=== PATIENT | male | born 1935 | race Caucasian/White ===

== ENCOUNTER 2019-08-29 10:48 | Inpatient (IN) ==
[2019-08-29] MEDS ORDERED: SODIUM CHLORIDE 0.9% 1000ML 1,000 ML IV SCH ×2 (11:45→18:29)
[2019-08-29] MEDS ORDERED: ALBUT/IPRATROP 3MG/0.5MG NEB 3 ML VIAL NEB STA (11:56)
--- NOTE | 2019-08-29 12:04 | XRay Report ---
XR chest 1V portable CLINICAL HISTORY: 84 years-old Male presenting with cough. TECHNIQUE: Portable upright AP view of the chest was obtained. COMPARISON: None. FINDINGS: Atherosclerosis of the aortic arch. Cardiac silhouette normal in size. Elevation of the right hemidia phragm. Reticular opacities suggested at the lung bases, greater on the right. No other focal opacity . Overall coarsened lung markings. No large effusion or pneumothorax. Degenerative changes of the tho racic spine. Upper abdomen normal. IMPRESSION: 1. Bibasilar opacities greater on the right, possibly scarring or atelectasis. This would be better evaluated with PA and lateral views. 2. Elevation of the right hemidiaphragm could suggest hemidiaphragm paralysis/phrenic nerve injury. This may be on a chronic basis. ACT 112: Negative or not required by law. Results electronically sent 08/29/2019 12:03 PM to: Crissy Ortega DO Electronically signed by: Long Pacheco M.D. 08/29/2019 12:03 PM
[2019-08-29 12:33] LABS: Basophils # (auto) 0.04 K/uL (0-0.2); Basophils % (auto) 0.4 %; Eosinophils # (auto) 0.01 K/uL (0-0.5); Eosinophils % (auto) 0.1 %; Hematocrit (blood only) 42.3 % (42-52); Hemoglobin 14.4 g/dL (14.0-18.0); Immature Granulocytes # (auto) 0.03 K/uL (0.00-0.02); Immature Granulocytes % (auto) 0.3 %; Lymphocytes # (auto) 0.95 K/uL (1.2-3.4); Lymphocytes % (auto) 8.6 %; Mean Corpuscular Hemoglobin 29.3 pg (25-34); Mean Corpuscular Volume 86.2 fL (80-100); Mean Platelet Volume 9.4 fL (7.4-10.4); Monocytes # (auto) 0.75 K/uL (0.11-0.59); Monocytes % (auto) 6.8 %; Neutrophils # (auto) 9.25 K/uL (1.4-6.5); Neutrophils % (auto) 83.8 %; Platelet Count 188 K/uL (130-400); RDW Coefficient of Variation 13.3 % (11.5-14.5); RDW Standard Deviation 41.9 fL (36.4-46.3); Red Blood Count 4.91 M/uL (4.7-6.1); White Blood Count 11.03 K/uL (4.8-10.8)
[2019-08-29 12:51] LABS: Alanine Aminotransferase 30 U/L (12-78); Albumin Level 3.6 gm/dl (3.4-5.0); Aspartate Aminotransferase 19 U/L (15-37); BUN Creatinine Ratio 15.4 (10-20); Blood Urea Nitrogen 27 mg/dl (7-18); Calcium 9.1 mg/dl (8.5-10.1); Carbon Dioxide 22 mmol/L (21-32); Chloride 106 mmol/L (98-107); Est GFR (African American) 40.8; Est GFR (Non-African American) 35.2; Glucose 229 mg/dl (70-99); Potassium 4.1 mmol/L (3.5-5.1); Sodium 137 mmol/L (136-145)
[2019-08-29 12:56] LABS: Albumin Globulin Ratio 0.9 (0.9-2); Alkaline Phosphatase 102 U/L (45-117); Bilirubin,Total 0.9 mg/dl (0.2-1); Globulin 4.1 gm/dl (2.5-4.0); NT Pro B Type Natriuretic Pept 487 pg/ml (0-1800); Total Protein 7.7 gm/dl (6.4-8.2); Troponin I < 0.015 ng/ml (0-0.045)
[2019-08-29 13:06] LABS: Influenza A virus by PCR Neg for Influ A (Neg); Influenza B virus by PCR Neg for Influ B (Neg)
--- NOTE | 2019-08-29 13:48 | CT Scan Report ---
CT ANGIOGRAPHY OF THE CHEST, PULMONARY EMBOLUS PROTOCOL CLINICAL HISTORY: Shortness of breath. Evaluate for pulmonary embolus. COMPARISON STUDY: Chest radiograph August 29, 2019. TECHNIQUE: Following IV administration of 120 mL of Optiray-320, helical axial images of the chest we re obtained utilizing the pulmonary embolus protocol. Maximal intensity projections and sagittal and coronal reformats were viewed on an independent 3D workstation. IV contrast was administered withou t complication. Automated exposure control was utilized for the study. A dose lowering technique wa s utilized adhering to the principles of ALARA. CT DOSE: 814.95 mGy.cm FINDINGS: Moderate elevation of the right hemidiaphragm is noted. No pulmonary emboli are identified . There is no thoracic aortic dissection. Moderate cardiomegaly is noted with extensive coronary brittani ry calcification. There is no pericardial effusion. No pneumothorax or pleural effusion is noted. Mil dly enlarged subcarinal lymph node measures 1.4 cm in short axis stent. Mildly enlarged right hilar n odes measure up to 1.4 cm in short axis diameter. Moderate irregular airspace opacities within the ri ght lung are noted. Left lung subpleural opacity reflects atelectasis. The central airways are patent . Bony thorax is unremarkable. No significant abnormality within visualized portions of the upper abd omen is noted. IMPRESSION: 1. No pulmonary emboli identified. 2. Multifocal alveolar opacities within the right lung which favor an infectious process such as bron chiolitis/developing bronchopneumonia. 3. Mild subcarinal and right hilar lymphadenopathy which is likely reactive. However, a follow-up [facility] CT in 3 months to ensure resolution is recommended. 4. Moderate elevation of the right hemidiaphragm. 5. Moderate cardiomegaly. Extensive coronary artery calcification. ACT 112: Negative or not required by law. Electronically signed by: Carl Corado M.D. 08/29/2019 1:47 PM
[2019-08-29] MEDS ORDERED: cefTRIAXone SODIUM 2,000 MG/70 ML BAG IV STA (14:02)
[2019-08-29] MEDS ORDERED: AZITHROMYCIN 250 MG TAB PO ONE (14:02)
--- NOTE | 2019-08-29 14:31 | Emergency Department Note ---
Entered by Patricia Maria acting as a scribe for History of Present Illness General Chief complaint: Flu Like Symptoms Stated complaint: flu symptoms Time Seen by Provider: 08/29/19 10:53 Source: patient History of Present Illness Onset (ago): day(s) 3 Location: head (general ) Severity: similar to prior episodes Pain Consistency: + other (persistent ) Quality: + other (flu-like symptoms ) Associated symptoms: + cough (productive with yellow phlegm ), + fever/chills, + loss of appetite and + other (negative diarrhea; positive runny and stuffy nose; negative sore throat); no nausea/vomiting Treatments prior to arrival: other (Coricidin ) The patient is a 84 year old male who presents to the Emergency Room with complaints of persistent flu-like symptoms that began 3 days prior to arrival. The patient states that during this time he has had a productive cough with yellow phlegm. He states that he had a fever at home and took Coricidin for his symptoms. The patient states that he has had a loss of appetite during this time. He reports runny and stuffy nose, but denies sore throat. The patient denies vomiting and diarrhea. The patient states that he is often around others who are sick. He states that he has a history of pneumonia, and states that his current symptoms feel similar to a prior episode of pneumonia. Patient states he did get a flu shot earlier this year. Home Medications Home Medications Medication Instructions Recorded Confirmed Type diazepam [Valium] 2 mg PO HS 03/26/19 08/29/19 History insulin regular human [Novolin R 8 unit SUBCUT TID PRN 03/26/19 08/29/19 History Regular U-100 Insuln] lisinopril 20 mg PO QAM 03/26/19 08/29/19 History methadone 10 mg PO DAILY 04/04/19 08/29/19 History pantethine 300 mg PO HS 04/04/19 08/29/19 History polyethylene glycol 3350 [Miralax] 17 g PO BID PRN 04/04/19 08/29/19 History sennosides [senna] 8.6 mg PO BID 04/04/19 08/29/19 History simvastatin 10 mg PO HS 04/04/19 08/29/19 History eboejgatmjmmi-VB-gghyrsgusegin 2 tab PO Q6H PRN 08/29/19 08/29/19 History [Coricidin HBP Flu] coQ10 (ubiquinol) 100 mg PO HS 08/29/19 08/29/19 History coQ10 (ubiquinol) 200 mg PO QAM 08/29/19 08/29/19 History insulin glargine [Lantus U-100 20 unit SUBCUT HS 08/29/19 08/29/19 History Insulin] Allergies Allergy/AdvReac Type Severity Reaction Status Date / Time Tetanus Vaccines and Toxoid Allergy Unknown Unknown Verified 08/29/19 11:56 Past Med/Surg History Medical History Diabetes (Acute) Hypertension (Acute) Surgical History Hx of tonsillectomy (Acute) No history of previous surgery (Acute) Social History Preferred Language: [place] Communication Ability: Effective 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 and A total of 10 systems reviewed and were otherwise negative Physical Exam Vital Signs Vital Signs - 24 hr 08/29/19 11:30 08/29/19 12:00 08/29/19 12:03 Pulse Rate 70 66 69 Pulse Rate [Apical] Pulse Rate from SpO2 Sensor 72 68 69 Respiratory Rate 23 23 23 Respiratory Effort / Characteristics Blood Pressure 129/57 L Blood Pressure Mean 88 Pulse Oximetry 92 94 93 Oxygen Delivery Method Nasal Cannula Oxygen Flow Rate 2 08/29/19 12:21 08/29/19 12:30 08/29/19 12:31 Pulse Rate 68 69 Pulse Rate [Apical] 70 Pulse Rate from SpO2 Sensor 68 69 Respiratory Rate 20 24 22 Respiratory Effort / Characteristics Non-Labored Spontaneous Blood Pressure 125/52 L Blood Pressure Mean 96 Pulse Oximetry 97 95 93 Oxygen Delivery Method Nasal Cannula Nasal Cannula Oxygen Flow Rate 3 2 08/29/19 13:00 08/29/19 13:01 08/29/19 13:37 Pulse Rate 70 70 92 H Pulse Rate [Apical] Pulse Rate from SpO2 Sensor 76 83 73 Respiratory Rate 20 24 14 Respiratory Effort / Characteristics Blood Pressure 125/50 L Blood Pressure Mean 75 Pulse Oximetry 92 92 Oxygen Delivery Method Oxygen Flow Rate 08/29/19 14:00 08/29/19 14:01 08/29/19 14:30 Pulse Rate 75 73 71 Pulse Rate [Apical] Pulse Rate from SpO2 Sensor 73 73 71 Respiratory Rate 23 20 Respiratory Effort / Characteristics Blood Pressure 134/51 L 142/52 H Blood Pressure Mean 94 87 Pulse Oximetry 95 93 Oxygen Delivery Method Nasal Cannula Oxygen Flow Rate 2 08/29/19 14:31 08/29/19 15:00 08/29/19 15:01 Pulse Rate 70 68 67 Pulse Rate [Apical] Pulse Rate from SpO2 Sensor 70 73 71 Respiratory Rate 23 20 Respiratory Effort / Characteristics Blood Pressure 139/52 L Blood Pressure Mean 96 Pulse Oximetry 93 92 Oxygen Delivery Method Nasal Cannula Oxygen Flow Rate 2 08/29/19 15:30 08/29/19 15:31 08/29/19 16:00 Pulse Rate 67 65 66 Pulse Rate [Apical] Pulse Rate from SpO2 Sensor 66 77 Respiratory Rate 19 25 H 24 Respiratory Effort / Characteristics Blood Pressure 132/51 L 127/56 L Blood Pressure Mean 89 96 Pulse Oximetry 91 Oxygen Delivery Method Oxygen Flow Rate 08/29/19 16:01 08/29/19 16:30 08/29/19 16:31 Pulse Rate 67 66 66 Pulse Rate [Apical] Pulse Rate from SpO2 Sensor 66 65 Respiratory Rate 26 H 23 Respiratory Effort / Characteristics Blood Pressure 135/53 L Blood Pressure Mean 69 Pulse Oximetry 91 90 Oxygen Delivery Method Oxygen Flow Rate GENERAL: alert, well appearing, well nourished, no distress, non-toxic EYE EXAM: normal conjunctiva, PERRL and EOM's grossly intact OROPHARYNX: no exudate, no erythema, lips, buccal mucosa, and tongue normal and mucous membranes are dry. NECK: supple, no nuchal rigidity, no adenopathy, non-tender LUNGS: Rhonchi at the right base posteriorly. Normal chest wall mechanics. No retractions. Patient states he feels more comfortable with mild supplemental oxygen via nasal cannula in place. HEART: no murmurs, S1 normal and S2 normal ABDOMEN: abdomen soft, non-tender, normo-active bowel sounds, no masses, no rebound or guarding. BACK: Back is symmetrical on inspection and there is no deformity, no midline tenderness, no CVA tenderness. SKIN: no rashes and no bruising UPPER EXTREMITIES: upper extremities are grossly normal. FROM, nml pulses b/l. LOWER EXTREMITIES: No pitting edema. FROM, nml pulses b/l. NEURO EXAM: Normal sensorium, cranial nerves II-XII grossly intact, normal speech, no gross weakness of arms, no gross weakness of legs. Course Course 1058: Past medical records reviewed. The patient was evaluated in room C5. A complete history and physical exam was performed. 1411: Updated patient on results. Discussed with him additional inpatient evaluation and management, he was in agreement. 1504[facility]. Administered Medications Albuterol (Duoneb) 3 ml NEB QIDR NICOLE Stop: 09/28/19 18:59 Last Admin: 08/30/19 07:20 Dose: 3 ml Documented by: [id number] Admin: 08/29/19 20:16 Dose: 3 ml Documented by: [id number] Heparin Sodium (Porcine) (Heparin Sodium (Porcine)) 5,000 units SQ Q12 NICOLE Stop: 09/28/19 20:59 Last Admin: 08/30/19 08:05 Dose: 5,000 units Documented by: [id number] Cosigned by: [id number] Admin: 08/29/19 20:19 Dose: 5,000 units Documented by: [id number] Cosigned by: [id number] Methylprednisolone 40 mg/ (Syringe) 0.64 mls @ 1.5 mls/min IV BID NICOLE Stop: 09/28/19 20:59 Last Admin: 08/30/19 08:04 Dose: 1.5 mls/min Documented by: [id number] Admin: 08/29/19 20:14 Dose: 1.5 mls/min Documented by: [id number] Doxycycline Hyclate 100 mg/ (Dextrose) 110 mls @ 55 mls/hr IV BID NICOLE Stop: 09/05/19 20:59 Last Infusion: 08/30/19 10:11 Dose: 0 mls/hr Documented by: [id number] Admin: 08/30/19 08:06 Dose: 55 mls/hr Documented by: [id number] Infusion: 08/29/19 23:13 Dose: 0 mls/hr Documented by: [id number] Admin: 08/29/19 21:13 Dose: 55 mls/hr Documented by: [id number] Insulin Aspart (Novolog Flexpen) 0 units SC ACHS NICOLE Stop: 09/28/19 19:59 Last Admin: 08/30/19 08:09 Dose: 14 units Documented by: [id number] Cosigned by: [id number] Admin: 08/29/19 20:16 Dose: 10 units Documented by: [id number] Cosigned by: [id number] Lisinopril (Zestril) 20 mg PO QAM NICOLE Stop: 09/29/19 08:59 Last Admin: 08/30/19 08:04 Dose: 20 mg Documented by: [id number] Methadone HCl (Dolophine) 10 mg PO DAILY NICOLE Stop: 09/13/19 08:59 Last Admin: 08/30/19 08:04 Dose: 10 mg Documented by: [id number] Methadone HCl (Dolophine) 5 mg PO HS PRN PRN Reason: Pain Stop: 09/13/19 20:59 Last Admin: 08/30/19 01:41 Dose: 5 mg Documented by: [id number] Sennosides (Senokot) 8.6 mg PO BID NICOLE Stop: 09/28/19 20:59 Last Admin: 08/30/19 08:04 Dose: 8.6 mg Documented by: [id number] Admin: 08/29/19 20:18 Dose: 8.6 mg Documented by: [id number] Simvastatin (Zocor) 10 mg PO HS NICOLE Stop: 09/28/19 20:59 Last Admin: 08/29/19 20:21 Dose: 10 mg Documented by: [id number] Discontinued Medications Albuterol (Duoneb) 3 ml NEB NOW STA Stop: 08/29/19 11:57 Last Admin: 08/29/19 12:20 Dose: 3 ml Documented by: [id number] Azithromycin (Zithromax) 500 mg PO NOW ONE Stop: 08/29/19 14:03 Last Admin: 08/29/19 14:24 Dose: 500 mg Documented by: [id number] Sodium Chloride (Nss 1000ml) 1,000 mls @ 125 mls/hr IV .Q8H NICLOE Stop: 09/28/19 11:44 Last Infusion: 08/29/19 19:00 Dose: 0 mls/hr Documented by: [id number] Admin: 08/29/19 12:38 Dose: 125 mls/hr Documented by: [id number] Ceftriaxone Sodium (Rocephin) 2,000 mg in 70 mls @ 140 mls/hr IV NOW [facility] Stop: 08/29/19 14:31 Last Infusion: 08/29/19 15:07 Dose: 0 mls/hr Documented by: [id number] Admin: 08/29/19 14:24 Dose: 140 mls/hr Documented by: [id number] Sodium Chloride (Nss 1000ml) 1,000 mls @ 80 mls/hr IV .[id number] NICOLE Stop: 08/30/19 06:58 Last Infusion: 08/29/19 21:13 Dose: 0 mls/hr Documented by: [id number] Admin: 08/29/19 20:20 Dose: 80 mls/hr Documented by: [id number] Insulin Aspart (Novolog Flexpen) 0 units SC 0000,0400 [facility] Stop: 08/30/19 04:01 Last Admin: 08/30/19 03:56 Dose: 5 units Documented by: [id number] Cosigned by: [id number] Admin: 08/30/19 00:03 Dose: 7 units Documented by: [id number] Cosigned by: [id number] Insulin Glargine (Lantus Solostar Pen) 25 units SC HS [facility] Stop: 09/28/19 20:59 Last Admin: 08/29/19 21:13 Dose: 25 units Documented by: [id number] Cosigned by: [id number] Medical Decision Making Differential Diagnosis Differential diagnoses includes but is not limited to pneumonia, bronchitis, COPD/Asthma exacerbation, pneumothorax, pulmonary embolism, congestive heart failure, acute coronary syndrome Medical Records Attestation: I reviewed the patient's medical records. Home Medications Current Medication List: was personally reviewed by me Laboratory Data Attestation: I reviewed the patient's lab results. Result diagrams: 08/30/19 07:33 08/30/19 07:33 Lab Results 08/29/19 08/29/19 08/29/19 Range/Units 11:25 12:25 12:25 WBC 11.03 H (4.8-10.8) K/uL RBC 4.91 (4.7-6.1) M/uL Hgb 14.4 (14.0-18.0) g/dL Hct 42.3 (42-52) % MCV 86.2 (80-100) fL MCH 29.3 (25-34) pg MCHC 34.0 (32-36) g/dL RDW Std Deviation 41.9 (36.4-46.3) fL RDW Coeff of Ryne 13.3 (11.5-14.5) % Plt Count 188 (130-400) K/uL MPV 9.4 (7.4-10.4) fL Immature Gran % (Auto) 0.3 % Neut % (Auto) 83.8 % Lymph % (Auto) 8.6 % Mcminn % (Auto) 6.8 % Eos % (Auto) 0.1 % Baso % (Auto) 0.4 % Immature Gran # (Auto) 0.03 H (0.00-0.02) K/uL Neut # (Auto) 9.25 H (1.4-6.5) K/uL Lymph # (Auto) 0.95 L (1.2-3.4) K/uL Mcminn # (Auto) 0.75 H (0.11-0.59) K/uL Eos # (Auto) 0.01 (0-0.5) K/uL Baso # (Auto) 0.04 (0-0.2) K/uL Sodium 137 (136-145) mmol/L Potassium 4.1 (3.5-5.1) mmol/L Chloride 106 (98-107) mmol/L Carbon Dioxide 22 (21-32) mmol/L Anion Gap 9.0 (3-11) BUN 27 H (7-18) mg/dl Creatinine 1.72 H (0.6-1.4) mg/dl Est Cr Clr Drug Dosing 37.0 ml/min Est GFR ( Amer) 40.8 Est GFR (Non-Af Amer) 35.2 BUN/Creatinine Ratio 15.4 (10-20) Glucose 229 H (70-99) mg/dl Calcium 9.1 (8.5-10.1) mg/dl Total Bilirubin 0.9 (0.2-1) mg/dl AST 19 (15-37) U/L ALT 30 (12-78) U/L Alkaline Phosphatase 102 (45-117) U/L Troponin I < 0.015 (0-0.045) ng/ml NT-Pro-B Natriuret Pep 487 (0-1800) pg/ml Total Protein 7.7 (6.4-8.2) gm/dl Albumin 3.6 (3.4-5.0) gm/dl Globulin 4.1 H (2.5-4.0) gm/dl Albumin/Globulin Ratio 0.9 (0.9-2) Procalcitonin (0-0.5) ng/ml TSH 2.680 (0.300-4.500) uIu/ml Influenza Type A (PCR) Neg for Influ A (Neg) Influenza Type B (PCR) Neg for Influ B (Neg) 08/29/19 Range/Units 12:25 WBC (4.8-10.8) K/uL RBC (4.7-6.1) M/uL Hgb (14.0-18.0) g/dL Hct (42-52) % MCV (80-100) fL MCH (25-34) pg MCHC (32-36) g/dL RDW Std Deviation (36.4-46.3) fL RDW Coeff of Ryne (11.5-14.5) % Plt Count (130-400) K/uL MPV (7.4-10.4) fL Immature Gran % (Auto) % Neut % (Auto) % Lymph % (Auto) % Mcminn % (Auto) % Eos % (Auto) % Baso % (Auto) % Immature Gran # (Auto) (0.00-0.02) K/uL Neut # (Auto) (1.4-6.5) K/uL Lymph # (Auto) (1.2-3.4) K/uL Mcminn # (Auto) (0.11-0.59) K/uL Eos # (Auto) (0-0.5) K/uL Baso # (Auto) (0-0.2) K/uL Sodium (136-145) mmol/L Potassium (3.5-5.1) mmol/L Chloride (98-107) mmol/L Carbon Dioxide (21-32) mmol/L Anion Gap (3-11) BUN (7-18) mg/dl Creatinine (0.6-1.4) mg/dl Est Cr Clr Drug Dosing ml/min Est GFR ( Amer) Est GFR (Non-Af Amer) BUN/Creatinine Ratio (10-20) Glucose (70-99) mg/dl Calcium (8.5-10.1) mg/dl Total Bilirubin (0.2-1) mg/dl AST (15-37) U/L ALT (12-78) U/L Alkaline Phosphatase (45-117) U/L Troponin I (0-0.045) ng/ml NT-Pro-B Natriuret Pep (0-1800) pg/ml Total Protein (6.4-8.2) gm/dl Albumin (3.4-5.0) gm/dl Globulin (2.5-4.0) gm/dl Albumin/Globulin Ratio (0.9-2) Procalcitonin 0.08 (0-0.5) ng/ml TSH (0.300-4.500) uIu/ml Influenza Type A (PCR) (Neg) Influenza Type B (PCR) (Neg) Imaging Data Radiologist's Impression: Radiology results as stated below per my review and the radiologist's interpretation: XR chest 1V portable CLINICAL HISTORY: 84 years-old Male presenting with cough. TECHNIQUE: Portable upright AP view of the chest was obtained. COMPARISON: None. FINDINGS: Atherosclerosis of the aortic arch. Cardiac silhouette normal in size. Elevation of the right hemidiaphragm. Reticular opacities suggested at the lung bases, greater on the right. No other focal opacity. Overall coarsened lung markings. No large effusion or pneumothorax. Degenerative changes of the thoracic spine. Upper abdomen normal. IMPRESSION: 1. Bibasilar opacities greater on the right, possibly scarring or atelectasis. This would be better evaluated with PA and lateral views. 2. Elevation of the right hemidiaphragm could suggest hemidiaphragm para lysis/phrenic nerve injury. This may be on a chronic basis. ACT 112: Negative or not required by law. Results electronically sent 08/29/2019 12:03 PM to: Crissy Ortega DO Electronically signed by: Long Pacheco M.D. 08/29/2019 12:[address] ANGIOGRAPHY OF THE CHEST, PULMONARY EMBOLUS PROTOCOL CLINICAL HISTORY: Shortness of breath. Evaluate for pulmonary embolus. COMPARISON STUDY: Chest radiograph August 29, 2019. TECHNIQUE: Following IV administration of 120 mL of Optiray-320, helical axial images of the chest were obtained utilizing the pulmonary embolus protocol. Maximal intensity projections and sagittal and coronal reformats were viewed on an independent 3D workstation. IV contrast was administered without complication. Automated exposure control was utilized for the study. A dose lowering technique was utilized adhering to the principles of ALARA. CT DOSE: 814.95 mGy.cm FINDINGS: Moderate elevation of the right hemidiaphragm is noted. No pulmonary emboli are identified. There is no thoracic aortic dissection. Moderate ca rdiomegaly is noted with extensive coronary artery calcification. There is no pericardial effusion. No pneumothorax or pleural effusion is noted. Mildly enlarged subcarinal lymph node measures 1.4 cm in short axis stent. Mildly enlarged right hilar nodes measure up to 1.4 cm in short axis diameter. Moderate irregular airspace opacities within the right lung are noted. Left lung subpleural opacity reflects atelectasis. The central airways are patent. Bony thorax is unremarkable. No significant abnormality within visualized portions of the upper abdomen is noted. IMPRESSION: 1. No pulmonary emboli identified. 2. Multifocal alveolar opacities within the right lung which favor an infectious process such as bronchiolitis/developing bronchopneumonia. 3. Mild subcarinal and right hilar lymphadenopathy which is likely reactive. However, a follow-up chest CT in 3 months to ensure resolution is recommended. 4. Moderate elevation of the right hemidiaphragm. 5. Moderate cardiomegaly. Extensive coronary artery calcification. ACT 112: Negative or not required by law. Electronically signed by: Carl Corado M.D. 08/29/2019 1:47 PM ECG Data Attestation: I personally reviewed and interpreted this ECG as follows: Indication: + SOB/dyspnea Rate (beats per minute): 69 Rhythm: + sinus rhythm ECG Intervals/blocks: + First degree AV block, + Normal QRS and + Normal QT-c ECG [place]: + Normal ECG ST segments: no ST depression and no ST elevation ECG Findings: + Other (baseline artifact ) Blood Pressure Blood Pressure Findings: Elevated blood pressure Blood Pressure Disposition: further management by hospitalist KIA Avalos This is an elderly male presenting with flulike symptoms and concern for possible evolving pneumonia. Patient hemodynamically stable. Patient did have initial borderline hypoxia with sats of 89-90 on room air and patient did report feeling improved with nasal cannula in place. Labs drawn and sent and chest x- ray performed. Due to mildly concerning findings noted on chest x-ray as well as patient's advanced age and risk, patient sent for additional CT imaging. This revealed evolving pneumonia, consistent with patient's symptoms. Patient also found to have new acute kidney injury, likely secondary to decreased intake and illness. As result of this patient has an elevated curb 65 score. Dis cussed with him additional inpatient evaluation and management, he verbalized understanding was in agreement. Patient was started on IV antibiotics for community-acquired pneumonia. Patient is a remote smoker, however no diagnosis of COPD, no home MDIs or nebs and no home O2. I do not suspect mica teremia/sepsis at this time. I do not suspect other contributing cardiac etiology. Case discussed with hospitalist for additional management. Impression & Plan Dyspnea, Pneumonia, Weakness, Dehydration, VANNESA (acute kidney injury) Discharge Plan Visit Data *Final* Discharge Date/Time: 08/29/19 18:04 Chief Complaint: Flu Like Symptoms Stated Complaint: flu symptoms ED Provider: Crissy Ortega Discharge Problem: Dyspnea, Pneumonia, Weakness, Dehydration, VANNESA (acute kidney injury) Patient Disposition: Admitted As Inpatient Discharge Instructions Interventions: ED Discharge Assessment Last Done: 08/29/19 18:04 Risk - CURB-65 Scoring CURB-65 Scoring Confusion: No BUN >19 mg/dl (>7 mmol/L): Yes Respiratory Rate > or = 30: No SBP <90 mmHg or DBP < or = 60 mmHg: No Age > or = 65: Yes CURB-65 Total Points: 2 CURB-65 Risk: Moderate Risk Pneumonia CURB-65 Interpretation: Score interpretation (as per derivation study): CURB-65 Mortality Score Risk Recommendations* 0 0.60% Low risk, consider home treatment 1 2.70% Low risk, consider home treatment 2 6.80% Short inpatient hospitalization or closely supervised outpt treatment 3 14.00% Severe pneumonia; hospitalize and consider admitting to intensive care 4 or 5 27.80% Severe pneumonia; hospitalize and consider admitting to intensive care Reference: 1. Coburn BA, et. al. Validity of Pneumonia Severity Index and CURB-65 Severity Scoring Systems in Community Acquired Pneumonia in an Setting. [facility] [employer]. 2010; Vol 52. 2. Deonte D, Leeann TE, Chris DM, et al. Prospective comparison of three validated prediction rules for prognosis in community-acquired pneumonia. AM. J. Med. 2005; 118(4): 384-92.doi: 10.1016/j.amjmed.2005.01.006. PMID [id number] 3. Jay PK, Ashely AV, Krzysztof SL, Paige DN, Noe BD. Seveirty assessment criteria recommended by the [employer] [employer] (BTS) for communicty- acquired pneumonia (CAP) and older patients. Should SOAR (systolic blood pressure, oxygenation, age and respiratory rate) criteria be used in older people? A compilation study of two prospective coholrts. Age Ageing. 2006:35(3):286-91 4. Francisco A, Joaquina PP, Rigo JM, et al. Validation of a predictive rule f or the management of community-acquired pneumonia. Eur Respir J. 2006:27(1):151-7. Discharge Problem: Dyspnea Qualifiers: Dyspnea type: unspecified Qualified Code(s): R06.00 - Dyspnea, unspecified Pneumonia Qualifiers: Pneumonia type: due to unspecified organism Laterality: right Lung location: unspecified part of lung Qualified Code(s): J18.9 - Pneumonia, unspecified organism The scribe's documentation has been prepared under my direction and personally reviewed by me in its entirety. I confirm that the note above accurately reflects all work, treatment, procedures, and medical decision making performed by me.
--- NOTE | 2019-08-29 16:02 | Electrocardiogram Report ---
Test Reason : Blood Pressure : / mmHG Vent. Rate : 069 BPM Atrial Rate : 069 BPM P-R Int : 258 ms QRS Dur : 086 ms QT Int : 400 ms P-R-T Axes : -13 -17 005 degrees QTc Int : 428 ms Poor data quality, interpretation may be adversely affected Sinus rhythm with 1st degree A-V block with Premature atrial complexes Low voltage QRS Inferior infarct , age undetermined Abnormal ECG No previous ECGs available Confirmed by Zeus Page ([id number]) on 08/29/2019 4:02:07 PM Referred By: Cassia Iniguez Confirmed By:Zeus Page
[2019-08-29] MEDS ORDERED: CHLORPHENIRAMINE PO PRN (18:29)
[2019-08-29] MEDS ORDERED: MAGNESIUM HYDROXIDE SUSP 30 ML UDC PO PRN (18:29)
[2019-08-29] MEDS ORDERED: ACETAMINOPHEN 325 MG TAB PO PRN (18:29)
[2019-08-29] MEDS ORDERED: ACETAMINOPHEN PO PRN (18:29)
[2019-08-29] MEDS ORDERED: NovoLIN-R INSULIN PER UNIT CHARGE SQ PRN (18:29)
[2019-08-29] MEDS ORDERED: GUAIFENESIN/DEXTROM SYRUP 200MG/20MG 10ML UDC PO PRN (18:29)
[2019-08-29] MEDS ORDERED: ALUMINUM/MAGNESIUM SUSP 30 ML UDC PO PRN (18:29)
[2019-08-29] MEDS ORDERED: POLYETHYLENE (MIRALAX) 17 GM PACK PO PRN (18:29)
[2019-08-29] MEDS ORDERED: DEXTROMETHORPHAN PO PRN (18:29)
[2019-08-29] MEDS ORDERED: PHARMACY GLYCEMIC MGMT CONSULT PRN (19:35)
[2019-08-29] MEDS ORDERED: GLUCOSE 10 TABS/TUBE PO PRN (19:45)
[2019-08-29] MEDS ORDERED: GLUCAGON FOR INJ 1 MG VIAL IM PRN (19:45)
[2019-08-29] MEDS ORDERED: GLUCOSE 40% GEL 15 GM TUBE PO PRN (19:45)
[2019-08-29] MEDS ORDERED: CARBOHYDRATES FOR HYPOGLYCEMIA PO PRN (19:45)
[2019-08-29] MEDS ORDERED: DEXTROSE 50% 50 ML SYRINGE IV PRN (19:45)
[2019-08-29] MEDS: methylPREDNISolone 40 MG in SYRINGE 0 ML IV SCH (20:14)
[2019-08-29] MEDS: INSULIN ASPART 100 UNITS/ML 3 ML PEN SC SCH (20:16)
[2019-08-29] MEDS: ALBUT/IPRATROP 3MG/0.5MG NEB 3 ML VIAL NEB SCH (20:16)
[2019-08-29] MEDS: SENNA 8.6 MG TAB PO SCH (20:18)
[2019-08-29] MEDS: HEPARIN SOD 5,000 UNIT/0.5 ML VIAL SQ SCH (20:19)
[2019-08-29] MEDS: SIMVASTATIN 10 MG TAB PO SCH (20:21)
[2019-08-29] MEDS ORDERED: PANTETHINE PO SCH (21:00)
[2019-08-29] MEDS ORDERED: NON-FORMULARY MEDICATION (Coq10 (Ubiquinol) 100 MG) PO SCH (21:00)
[2019-08-29] MEDS ORDERED: diazePAM 2 MG TABLET PO SCH (21:00)
[2019-08-29] MEDS ORDERED: INSULIN GLARGINE SOLOSTAR 100 UNITS/ML 3 ML PEN SC SCH (21:00)
[2019-08-29] MEDS: DOXYCYCLINE HYCLATE 100 MG in DEXTROSE 5% 100 ML IV SCH (21:13)
--- NOTE | 2019-08-29 21:23 | History & Physical Report ---
Date of Service August 29, 2019 Assessment & Plan (1) Acute respiratory failure with hypoxia: Admit to [facility] on telemetry, Vital signs every 4 hours, Started ceftriaxone and azithromycin in the emergency room for pneumonia, azithromycin switched to doxycycline 100 mg IV twice daily since patient also takes methadone which in combination with azithromycin could significantly prolong QT interval. Duo nebs 4 times daily, Solu-Medrol 40 mg IV twice daily, Shawn is seen 10 mL p.o. every 6 hours as needed, DVT prophylaxis Heparin 5000 units every 12 hours Supplemental oxygen continue to keep oxygenation above 88 to 92% Full code Present on Admission?: Yes (2) Dehydration: Continue gentle IV hydration 80 cc/h normal saline. Present on Admission?: Yes (3) Weakness: Start physical and Occupational Therapy Present on Admission?: Yes (4) Community acquired pneumonia: As discussed above Present on Admission?: Yes (5) Coronary artery disease: Patient had nuclear stress test which was in February 2019 which he could not complete it due to exertion. TTE pending EKG is abnormal with first-degree AV block and premature atrial complexes. Continue co-Q10 200 mg p.o. every morning and 100 mg p.o. nightly. Please consult cardiology with findings Present on Admission?: Yes (6) Hypertension: Continue lisinopril 20 mg p.o. every morning Present on Admission?: Yes (7) Opiate dependence: Continue methadone 10 mg p.o. daily Present on Admission?: Yes (8) Diabetes mellitus type 2 in obese: Glycemic control per pharmacy. Continue sliding scale insulin and Lantus, Hemoglobin A1c pending, Accu-Cheks before meals and at bedtime Present on Admission?: Yes History of Present Illness Chief Complaint: Shortness of breath, flulike symptoms Primary Care Provider: Cassia Iniguez PA-C The patient is an 84 years old male with past medical history of hypertension, diabetic mellitus type II, constipation, opiate dependence on methadone, who presents to the emergency room with complaint of persistent flulike symptoms that began 3 days prior to arrival. The patient states that during this time he has had a productive cough with yellow phlegm. Patient states that he had a fever at home and took Coricidin for his symptoms. Patient states that he has had a loss of appetite reviewing the past 3 days. He also reports congestion stuffy nose but denies sore throat. Patient denies vomiting diarrhea and recent travel. Patient also reports that nobody else is sick in his surroundings. Patient states that he has history of pneumonia in the past and he had several episodes of pneumonia. Patient denies headache, chest pain, abdominal pain, frequency, urgency, syncope or near syncope. Labs are reviewed: WBC is 11.03, hemoglobin 14.4, hematocrit 42.3, platelets 188, sodium 137, potassium 4.1, chloride 106, carbon dioxide 22, anion gap 9, BUN 27, creatinine 1.72, GFR 35.2, glucose 329, calcium 9.1, total bilirubin 0.3, AST 19, ALT 30, alkaline phosphatase 102, troponin 0.015, BNP 487, total protein four 7.7, globulin 4.1, pro calcitonin 0.08, TSH 2.68. Patient is negative for influenza A and influenza B. Chest x-ray show bibasilar opacities greater on the right possibly scarring or atelectasis. This will be better evaluated by PA and lateral views. Elevation of the right hemidiaphragm could suggest hemidiaphragm paralysis phrenic nerve injury. This may be on a chronic basis. CTA of the chest no pulmonary emboli identified, multifocal alveolar opacities within the right lung which favors an infectious process such as bronchiolitis/developing bronchopneumonia. Mild subcarinal and right hilar lymphadenopathy which is likely reactive. However a follow-up chest CT in 3 months to assure resolution is recommended. Moderate elevation of the right hemidiaphragm. Moderate cardiomegaly. Extensive coronary artery calcification. Patient reports not using oxygen at home at all. In the emergency room patient needed at least 2 L of supplemental oxygen to keep oxygenation between 88 and 92%. Decision was made to admit patient to [facility] on telemetry for further evaluation and treatment of community-acquired pneumonia. Allergies Allergy/AdvReac Type Severity Reaction Status Date / Time Tetanus Vaccines and Toxoid Allergy Unknown Unknown Verified 08/29/19 11:56 Home Medications Home Medications Medication Instructions Recorded Confirmed Type diazepam [Valium] 2 mg PO HS 03/26/19 08/29/19 History insulin regular human [Novolin R 8 unit SUBCUT TID PRN 03/26/19 08/29/19 History Regular U-100 Insuln] lisinopril 20 mg PO QAM 03/26/19 08/29/19 History methadone 10 mg PO DAILY 04/04/19 08/29/19 History pantethine 300 mg PO HS 04/04/19 08/29/19 History polyethylene glycol 3350 [Miralax] 17 g PO BID PRN 04/04/19 08/29/19 History sennosides [senna] 8.6 mg PO BID 04/04/19 08/29/19 History simvastatin 10 mg PO HS 04/04/19 08/29/19 History lzltidpuuaybp-WF-rhhclwilsjtfe 2 tab PO Q6H PRN 08/29/19 08/29/19 History [Coricidin HBP Flu] coQ10 (ubiquinol) 100 mg PO HS 08/29/19 08/29/19 History coQ10 (ubiquinol) 200 mg PO QAM 08/29/19 08/29/19 History insulin glargine [Lantus U-100 20 unit SUBCUT HS 08/29/19 08/29/19 History Insulin] Past Med/Surg History Medical History Diabetes (Acute) Hypertension (Acute) Surgical History Hx of tonsillectomy (Acute) No history of previous surgery (Acute) Social History Preferred Language: Tuval[place] Communication Ability: Effective Taxation Agent Required: No Beliefs That Will Affect Care: None Current Living Situation: Spouse Other Information That Helps Us Care for You: No Feels Safe at Home: Yes Safety Concerns: Feels Safe At This Time Smoking Status: Former smoker Tobacco Cessation Education Requested by Patient: No Hx Alcohol Use: No Hx Substance Use: No Review of Systems Review of Systems: All systems reviewed & are unremarkable except as noted in HPI & below Physical Exam Constitutional: WD/WN, vitals as above well developed and + ill appearing Eyes: PERRL, conjunctivae normal, anicteric sclerae Injected eyes bilaterally ENMT: Ears: + hearing impairment Neck: trachea midline, no thyromegaly Respiratory: normal respiratory effort, lungs clear to auscultation + respiratory distress, + labored breathing and + uses accessory muscles Auscultation: + crackles and + wheezes Cardiovascular: Heart Sounds: normal S1, normal S2 and + murmur Vessels: dorsalis pedis pulses present Extremities: + pedal edema Gastrointestinal (Abdomen): normal bowel sounds, soft, nontender, no hepatosplenomegaly Musculoskeletal: no cyanosis or clubbing, extremities motor strength 5/5 Skin: no rashes, warm and dry Neurologic: patellar DTR's 2+ bilat, sensation intact Psychiatric: A+Ox3, euthymic affect Lymphatic: no cervical or axillary lymphadenopathy Results & Data Vital Signs (Past 12 Hours) Vital Signs Temp Pulse Pulse Resp BP Pulse Ox 08/29/19 20:16 76 16 91 08/29/19 18:31 37.4 C 87 20 90 08/29/19 16:31 66 23 90 08/29/19 16:30 66 135/53 L 91 08/29/19 16:01 67 26 H 08/29/19 16:00 66 24 127/56 L 08/29/19 15:31 65 25 H 08/29/19 15:30 67 19 132/51 L 91 08/29/19 15:01 67 20 08/29/19 15:00 68 23 139/52 L 92 08/29/19 14:31 70 93 08/29/19 14:30 71 20 142/52 H 93 08/29/19 14:01 73 23 08/29/19 14:00 75 134/51 L 95 08/29/19 13:37 92 H 14 92 08/29/19 13:01 70 24 08/29/19 13:00 70 20 125/50 L 92 08/29/19 12:31 69 22 93 08/29/19 12:30 68 24 125/52 L 95 08/29/19 12:21 70 20 97 08/29/19 12:03 69 23 129/57 L 93 08/29/19 12:00 66 23 94 08/29/19 11:30 70 23 92 08/29/19 11:10 37.1 C 75 20 119/55 L 90 08/29/19 11:05 74 93 08/29/19 10:58 75 119/55 L Code Status & VTE Plan Code Status Full code VTE Prophylaxis Plan VTE Prophylaxis will be ordered: Yes PG Care Time/CCT Total # of Minutes Spent Total Time Spent with Patient: Total time spent is greater than 50% in coordination of care (as documented) at patient's floor/unit and/or counseling patient: Coding Level of Care Code 23649 Initial Inpt Care Lvl 3 Diagnoses Acute respiratory failure with hypoxia J96.01 Dehydration E86.0 Weakness R53.1 Community acquired pneumonia J18.9 Coronary artery disease I25.10 Hypertension I10 Opiate dependence F11.20 Diabetes mellitus type 2 in obese E11.69; E66.9
[2019-08-30] MEDS: INSULIN ASPART 100 UNITS/ML 3 ML PEN SC SCH ×6 (00:03→20:45)
[2019-08-30] MEDS ORDERED: METHADONE HCL 5 MG TAB PO PRN (01:17)
[2019-08-30] MEDS: ALBUT/IPRATROP 3MG/0.5MG NEB 3 ML VIAL NEB SCH ×4 (07:20→19:23)
--- NOTE | 2019-08-30 07:44 | Hospitalist Progress Note ---
Date of Service August 30, 2019 Assessment & Plan (1) Acute respiratory failure with hypoxia: Mr. Yoon is an 84 yo gentleman without underlying lung disease admitted on 08/28 for acute hypoxic respiratory failure, thought to be secondary to a multifocal CAP. - currently satting 92% on 3L via NC. Wean O2 as tolerated - DuoNebs q4 prn - will deescalate steroids from methylprednisolone to prednisone 40mg, daily - treat underlying infection as below (2) Community acquired pneumonia: - no risk factors for HCAP - CURB 65 score of 3, placing him in severe risk group - currently on day 2 of 7 of ceftriaxone and doxycycline - continue prednisone 40mg, daily for total of 5 day steroid course (end date 09/01) - no sputum culture obtained; will hold off on ordering since abx already initiated (3) Weakness: - likely secondary to above illness - PT/OT ordered (4) VANNESA (acute kidney injury): - baseline Cr ~ 1.3. - Cr 1.72 on admission, down to 1.51 today with volume resuscitation - likely pre-renal in origin related to dehydration with illness - continue to trend - IVF d/c as patient is tolerating PO intake (5) Diabetes mellitus type 2 in obese: - A1c 8.6 on admission, at goal for patient age - pharmacy managing long acting and sliding scale insulin while in hospital - blood glucose checks AC/HS (6) Opiate dependence: - patient on chronic methadone 10mg, daily - Dulcolax suppositories ordered for constipation (7) Coronary artery disease: - patient had a nuclear stress test done in 03/2019 at [facility] - per H&P, this study had to be stopped shy of completion due to poor exercise tolerance - Review of report in chart does not appear to indicate explanation of why study was stopped early, nor is interpretation of results able to be appreciated - EKG on admission showing first degree AV block with some PACs - TTE ordered for further assess cardiac function - continue home Zocor and Co-Q (8) Hypertension: - BP currently at goal at 129/56 - continue home lisinopril Code Status: Full DVT ppx: Heparin 5,000 units, SQ, Q12h Dispo: Med/Surg Diet: DMII, heart healthy Admission and Anticipated Discharge Date Admission Date: August 29, 2019 Supervising Physician Co-Signing Physician Notes I supervised Anila Mayfield MD on this patient's care. I examined the patient today independently of her. I discussed the plan of care with her with the plan being as written in her note except for any following changes/exceptions: None. Breathing more comfortably today. Feels overall well. Will follow up on echo done today and if feeling better, could be discharged tomorrow. Subjective Feeling better than admission. Eating well. Not yet ambulated. Review of Systems Review of Systems: All systems reviewed & are unremarkable except as noted in HPI & below Physical Exam Constitutional: WD/WN, vitals as above Eyes: + anicteric sclerae ENMT: external ear and nose normal, oropharynx normal Neck: normal visual inspection and trachea midline Respiratory: normal respiratory effort Auscultation: + diminished lung sounds (bilateral lower lobes) and + wheezes (diffuse, expiratory) Respirations are coarse. Cardiovascular: RRR, no murmur, no edema Heart Sounds: normal S1 and normal S2 Extremities: no pedal edema Gastrointestinal (Abdomen): normal bowel sounds, soft, nontender, no hepatosplenomegaly Skin: no rashes, warm and dry Psychiatric: A+Ox3, euthymic affect Results & Data ([facility]) Vital Signs (Past 12 Hours) Vital Signs Temp Pulse Pulse Pulse Resp BP Pulse Ox 08/30/19 07:20 62 16 90 08/30/19 04:10 36.9 C 68 18 123/54 L 92 08/30/19 01:12 66 08/30/19 00:40 37.3 C 68 18 116/58 L 90 08/29/19 20:16 76 16 91 Resident Activity Tracking Resident Involvement: Resident Care Provided Care Provided: Adult [facility]
[2019-08-30] MEDS: SENNA 8.6 MG TAB PO SCH ×2 (08:04→20:44)
[2019-08-30] MEDS: methylPREDNISolone 40 MG in SYRINGE 0 ML IV SCH (08:04)
[2019-08-30] MEDS: lisinopriL 20 MG TAB PO SCH (08:04)
[2019-08-30] MEDS: METHADONE HCL 10 MG TAB PO SCH (08:04)
[2019-08-30] MEDS: HEPARIN SOD 5,000 UNIT/0.5 ML VIAL SQ SCH ×2 (08:05→20:44)
[2019-08-30] MEDS: DOXYCYCLINE HYCLATE 100 MG in DEXTROSE 5% 100 ML IV SCH ×2 (08:06→20:44)
[2019-08-30 08:07] LABS: Basophils # (auto) 0.01 K/uL (0-0.2); Basophils % (auto) 0.1 %; Hematocrit (blood only) 38.4 % (42-52); Hemoglobin 13.1 g/dL (14.0-18.0); Immature Granulocytes # (auto) 0.04 K/uL (0.00-0.02); Immature Granulocytes % (auto) 0.5 %; Lymphocytes # (auto) 0.72 K/uL (1.2-3.4); Lymphocytes % (auto) 9.2 %; Mean Corpuscular Hemoglobin 29.6 pg (25-34); Mean Corpuscular Hgb Conc 34.1 g/dL (32-36); Mean Corpuscular Volume 86.9 fL (80-100); Mean Platelet Volume 9.4 fL (7.4-10.4); Monocytes # (auto) 0.35 K/uL (0.11-0.59); Monocytes % (auto) 4.5 %; Neutrophils # (auto) 6.68 K/uL (1.4-6.5); Neutrophils % (auto) 85.7 %; Platelet Count 206 K/uL (130-400); RDW Coefficient of Variation 13.2 % (11.5-14.5); RDW Standard Deviation 42.2 fL (36.4-46.3); Red Blood Count 4.42 M/uL (4.7-6.1)
[2019-08-30 08:09] LABS: Estimated Average Glucose 200 mg/dl; Hemoglobin A1C 8.6 % (4.5-5.6)
[2019-08-30 08:33] LABS: Albumin Level 3.1 gm/dl (3.4-5.0); BUN Creatinine Ratio 19.6 (10-20); Creatinine Clr Calc Pharmacy 42.2 ml/min; Est GFR (African American) 47.8; Est GFR (Non-African American) 41.2; Potassium 4.3 mmol/L (3.5-5.1)
[2019-08-30 08:36] LABS: Albumin Globulin Ratio 0.8 (0.9-2); Bilirubin,Total 0.5 mg/dl (0.2-1); Total Protein 7.1 gm/dl (6.4-8.2)
[2019-08-30] MEDS ORDERED: NON-FORMULARY MEDICATION (Coq10 (Ubiquinol) 200 MG) PO SCH (09:00)
[2019-08-30] MEDS ORDERED: AZITHROMYCIN 250 MG TAB PO SCH (09:00)
[2019-08-30] MEDS ORDERED: INSULIN HUMAN NPH SC SCH (11:30)
[2019-08-30] MEDS ORDERED: bisacodyL 10 MG SUPP PR PRN (11:36)
[2019-08-30] MEDS ORDERED: INSULIN HUMAN NPH SC ONE (12:00)
--- NOTE | 2019-08-30 12:46 | Pharmacy Report ---
Pharmacy Glycemic Short Note 2 - Date of Service August 30, 2019 - Glycemic Short BSG Results (Last 24 hours): 08/29/19 08/29/19 08/29/19 12:25 18:18 23:59 Glucose 229 H POC Glucose 235 H 241 H 08/30/19 08/30/19 08/30/19 03:53 07:33 08:13 Glucose 224 H POC Glucose 212 H 237 H 08/30/19 08/30/19 11:53 11:54 Glucose POC Glucose 304 H* 306 H* ASSESSMENT: * Hyperglycemia; likely steroid induced. We will provide a dose of NPH this afternoon to help with his lunch BSG of 306mg/dL. SM 40mg IV BID is being tapered to Prednisone 40mg daily. This should help with his hyperglycemia. PLAN FOR INPATIENT GLYCEMIC CONTROL: * Basal insulin * Lantus scale, see MAR for further details * NPH x1 this afternoon then scheduled NPH QDB 08/30 to help cover prednisone's effect on BSGs * Bolus insulin * NovoLog per scale ACHS or Q6hrs while NPO * Goal Range: Low 110 mg/dL - High 140 mg/dL * Correction Factor: 15 mg/dL/unit * Nutritional / Prandial insulin per carb ratio of 1 unit per 6 grams CHO consumed
[2019-08-30] MEDS ORDERED: cefTRIAXone SODIUM 2,000 MG in DEXTROSE 5% 50 ML IV SCH (14:00)
--- NOTE | 2019-08-30 16:45 | XCELERA ---
[id number] \\[id number]
[2019-08-30] MEDS ORDERED: INSULIN HUMAN REGULAR PER UNIT 9 UNITS in SYRINGE 8.91 ML IV ONE (17:00)
[2019-08-30] MEDS: SIMVASTATIN 10 MG TAB PO SCH (20:44)
[2019-08-30] MEDS ORDERED: INSULIN GLARGINE SOLOSTAR 100 UNITS/ML 3 ML PEN SC SCH (21:00)
[2019-08-31] MEDS: INSULIN ASPART 100 UNITS/ML 3 ML PEN SC SCH ×4 (00:14→12:30)
[2019-08-31 07:27] LABS: Basophils # (auto) 0.02 K/uL (0-0.2); Basophils % (auto) 0.1 %; Hematocrit (blood only) 37.2 % (42-52); Hemoglobin 12.7 g/dL (14.0-18.0); Immature Granulocytes # (auto) 0.08 K/uL (0.00-0.02); Immature Granulocytes % (auto) 0.5 %; Lymphocytes # (auto) 0.79 K/uL (1.2-3.4); Lymphocytes % (auto) 5.2 %; Mean Corpuscular Hemoglobin 28.9 pg (25-34); Mean Corpuscular Hgb Conc 34.1 g/dL (32-36); Mean Corpuscular Volume 84.5 fL (80-100); Mean Platelet Volume 8.9 fL (7.4-10.4); Monocytes # (auto) 1.87 K/uL (0.11-0.59); Monocytes % (auto) 12.4 %; Neutrophils # (auto) 12.37 K/uL (1.4-6.5); Neutrophils % (auto) 81.8 %; Platelet Count 197 K/uL (130-400); White Blood Count 15.13 K/uL (4.8-10.8)
[2019-08-31] MEDS ORDERED: INSULIN HUMAN NPH SC SCH (07:30)
[2019-08-31] MEDS: ALBUT/IPRATROP 3MG/0.5MG NEB 3 ML VIAL NEB SCH ×2 (07:36→11:40)
[2019-08-31 07:55] LABS: Albumin Level 2.7 gm/dl (3.4-5.0); BUN Creatinine Ratio 27.1 (10-20); Creatinine Clr Calc Pharmacy 49.5 ml/min; Est GFR (African American) 58.3; Est GFR (Non-African American) 50.3; Potassium 4.2 mmol/L (3.5-5.1)
[2019-08-31 07:58] LABS: Albumin Globulin Ratio 0.7 (0.9-2); Bilirubin,Total 0.4 mg/dl (0.2-1); Globulin 3.7 gm/dl (2.5-4.0); Total Protein 6.4 gm/dl (6.4-8.2)
[2019-08-31] MEDS: SENNA 8.6 MG TAB PO SCH (08:11)
[2019-08-31] MEDS: lisinopriL 20 MG TAB PO SCH (08:11)
[2019-08-31] MEDS: HEPARIN SOD 5,000 UNIT/0.5 ML VIAL SQ SCH (08:12)
[2019-08-31] MEDS: METHADONE HCL 10 MG TAB PO SCH (08:17)
[2019-08-31] MEDS: DOXYCYCLINE HYCLATE 100 MG in DEXTROSE 5% 100 ML IV SCH (08:21)
[2019-08-31] MEDS ORDERED: predniSONE 20 MG TAB PO SCH (09:00)
--- NOTE | 2019-08-31 10:21 | Discharge Summary ---
Date of Service August 31, 2019 Admission HPI Per Admitting Provider The patient is an 84 years old male with past medical history of hypertension, diabetic mellitus type II, constipation, opiate dependence on methadone, who presents to the emergency room with complaint of persistent flulike symptoms that began 3 days prior to arrival. The patient states that during this time he has had a productive cough with yellow phlegm. Patient states that he had a fever at home and took Coricidin for his symptoms. Patient states that he has had a loss of appetite reviewing the past 3 days. He also reports congestion stuffy nose but denies sore throat. Patient denies vomiting diarrhea and recent travel. Patient also reports that nobody else is sick in his surroundings. Patient states that he has history of pneumonia in the past and he had several episodes of pneumonia. Patient denies headache, chest pain, abdominal pain, frequency, urgency, syncope or near syncope. Labs are reviewed: WBC is 11.03, hemoglobin 14.4, hematocrit 42.3, platelets 188, sodium 137, potassium 4.1, chl oride 106, carbon dioxide 22, anion gap 9, BUN 27, creatinine 1.72, GFR 35.2, glucose 329, calcium 9.1, total bilirubin 0.3, AST 19, ALT 30, alkaline phosphatase 102, troponin 0.015, BNP 487, total protein four 7.7, globulin 4.1, pro calcitonin 0.08, TSH 2.68. Patient is negative for influenza A and influenza B. Chest x-ray show bibasilar opacities greater on the right possibly scarring or atelectasis. This will be better evaluated by PA and lateral views. Elevation of the right hemidiaphragm could suggest hemidiaphragm paralysis phrenic nerve injury. This may be on a chronic basis. CTA of the chest no pulmonary emboli identified, multifocal alveolar opacities within the right lung which favors an infectious process such as bronchiolitis/developing bronchopneumonia. Mild subcarinal and right hilar lymphadenopathy which is likely reactive. However a follow-up chest CT in 3 months to assure resolution is recommended. Moderate elevation of the right hemidiaphragm. Moderate cardi omegaly. Extensive coronary artery calcification. Patient reports not using oxygen at home at all. In the emergency room patient needed at least 2 L of supplemental oxygen to keep oxygenation between 88 and 92%. Decision was made to admit patient to [facility] on telemetry for further evaluation and treatment of community-acquired pneumonia. Admission Exam Per Admitting Provider Constitutional: WD/WN, vitals as above well developed and + ill appearing Eyes: PERRL, conjunctivae normal, anicteric sclerae Injected eyes bilaterally ENMT: Ears: + hearing impairment Neck: trachea midline, no thyromegaly Respiratory: normal respiratory effort, lungs clear to auscultation + respiratory distress, + labored breathing and + uses accessory muscles Auscultation: + crackles and + wheezes Cardiovascular: Heart Sounds: normal S1, normal S2 and + murmur Vessels: dorsalis pedis pulses present Extremities: + pedal edema Gastrointestinal (Abdomen): normal bowel sounds, soft, nontender, no hepatosplenomegaly Musculoskeletal: no cyanosis or clubbing, extremities motor strength 5/5 Skin: no rashes, warm and dry Neurologic: patellar DTR's 2+ bilat, sensation intact Psychiatric: A+Ox3, euthymic affect Lymphatic: no cervical or axillary lymphadenopathy Principal Diagnosis Community Acquired Pneumonia Discharge Exam Constitutional WD/WN, vitals as above Eyes + anicteric sclerae ENMT external ear and nose normal, oropharynx normal Neck normal visual inspection and trachea midline Respiratory normal respiratory effort Auscultation: + diminished lung sounds (bilateral lower lobes) and + wheezes (diffuse, expiratory) Cardiovascular RRR, no murmur, no edema Heart Sounds: normal S1 and normal S2 Extremities: no pedal edema Gastrointestinal (Abdomen) normal bowel sounds, soft, nontender, no hepatosplenomegaly Skin no rashes, warm and dry Psychiatric A+Ox3, euthymic affect Discharge Data Allergies Allergy/AdvReac Type Severity Reaction Status Date / Time Tetanus Vaccines and Toxoid Allergy Unknown Unknown Verified 08/29/19 11:56 Consultations 08/29/19 15:58 ED Decision to Admit Stat Ordered Studies 08/29/19 12:40 CT angio chest PE protocol Stat Hospital Course (1) Acute respiratory failure with hypoxia: Mr. Yoon is an 84 yo gentleman without underlying lung disease admitted on 08/28 for acute hypoxic respiratory failure, thought to be secondary to a multifocal CAP. Respiratory distress was treated with supplemental oxygen therapy via nasal cannula, Duo-Nebs and IV steroids. Mr. Yoon was able to be weaned off oxygen by the time of discharge. IV steroids were converted to oral, and he was provided with a script to complete a 5 day course of prednisone 40mg upon discharge. For his pneumonia, he had no risk factors for healthcare-associated PNA. His CURB 65 score was 3 on admission placing him in the severe risk group. WBC was normal on admission, but did increase to 15 during his hospital stay. He was initially treated with ceftriaxone and azithromycin, however azithromycin was discontinued in favor of doxycycline for atypical coverage given the increased risk of long QT syndrome with his chronic methadone therapy. A script was provided for him to complete a 5 day course of Cefdinir and Doxycycline. Mr. Yoon demonstrated clinical improvement while under our care. Outpatient items to do: Clinical lung exam (2) Community acquired pneumonia: as above (3) VANNESA (acute kidney injury): Baseline Cr ~ 1.3. Elevated to 1.72 on admission, trended down to 1.24 on day of discharge. Thought to be pre-renal in origin related to dehydration with illness. Outpatient items to do: none (4) Diabetes mellitus type 2 in obese: A1c 8.6 on admission, at goal for patient age. He was treated with long acting and sliding scale insulin while in hospital. Steroid therapy may have elevated sugar levels. He may resume outpatient regimen upon discharge. Outpatient items to do: recheck A1c in 3 months (5) Opiate dependence: Patient on chronic methadone 10mg, daily. Dulcolax suppositories ordered for constipation. Continue to follow with methadone clinic. Outpatient items to do: none (6) Coronary artery disease: Patient had a nuclear stress test done in 03/2019 at [facility] due an abnormal EKG. The study showed normal LV systolic function, EF 70%, no induced EKG changes, no induced chest pain, and no evidence of a prior ID. EKG obtained this hospital admission showed a first degree AV block with some PACs. Because the report of the nuclear stress test was not able to be located on admission, a TTE was ordered. It showed normal LV systolic function with an EF 60-65%. Cotninue Zocor and coenzyme Q. Outpatient items to do: none (7) Hypertension: BP was at goal throughout hospital stay. Continue home lisinopril. electrolytes WNL. 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 Outpatient items to do: none Total Time Total Time Spent Total Time Spent (In Minutes): see attending attestation Discharge Plan Discharge Items Patient Disposition: Home - Self-Care Reason For Visit: Shortness of breath Discharge Diagnosis: Pneumonia Activity: Resume your previous activity Non-emergency contact: Primary Care Provider Call non-emergency contact if: you have any medication questions and your symptoms worsen Follow-up/Referrals: Cassia Iniguez PA-C [Primary Care Provider] - Diet: Carb Consistent or DM2 and Heart Healthy Addtl Attending Provider Instructions: You were hospitalized at [facility] for treatment of pneumonia, or an infection of your lung. You were treated with two antibiotics, in addition to steroids and oxygen therapy. You clinically improved while under our care. Please continue to take the antibiotics Doxycycline 100mg, twice daily for 3 days and Cefdinir, 300mg, twice daily for 4 days. Please take prednisone 40mg, daily for 2 days. An echocardiogram, or ultrasound of your heart was done while you were in the hospital, and it showed normal function. You mentioned being bothered by post-nasal drip, likely related to inflammation of your sinuses. We recommend you try over the counter fluticasone sensi-mist. Pending Studies at Discharge: No Stand-Alone Forms: My [facility], Smoking Cessation Medications and DC Order Prescriptions: New prednisone 20 mg Tablet 40 mg PO DAILY 2 Days Qty: 4 RF: 0 cefdinir 300 mg capsule 300 mg PO BID 4 Days Qty: 8 RF: 0 doxycycline hyclate 100 mg capsule 100 mg PO BID 3 Days Qty: 6 RF: 0 Continued lisinopril 20 mg Tablet 20 mg PO QAM RF: 0 diazepam [Valium] 2 mg Tablet 2 mg PO HS RF: 0 Novolin R Regular U-100 Insuln 100 unit/mL Solution 8 unit SUBCUT TID PRN (Reason: .) RF: 0 methadone 10 mg Tablet 10 mg PO DAILY RF: 0 polyethylene glycol 3350 [Miralax] 17 gram Powder In Packet 17 g PO BID PRN (Reason: Constipation) RF: 0 sennosides [senna] 8.6 mg Tablet 8.6 mg PO BID RF: 0 simvastatin 10 mg Tablet 10 mg PO HS RF: 0 pantethine 300 mg Tablet Extended Release 300 mg PO HS RF: 0 Lantus U-100 Insulin 100 unit/mL Solution 20 unit SUBCUT HS RF: 0 Coricidin HBP Flu 2-15-500 mg Tablet 2 tab PO Q6H PRN (Reason: Flu Symptoms) RF: 0 coQ10 (ubiquinol) 100 mg Capsule 200 mg PO QAM RF: 0 coQ10 (ubiquinol) 100 mg Capsule 100 mg PO HS RF: 0 Discharge Orders: Discharge Order (Routine); Ordered 08/31/19 Ordered By: Anila Ruby/Other Patient Handouts: Diabetes Healthy Meals, Diabetes Exercise Benefits, Diabetes Manage A1C Test Admission Data Admit Date/Time: 08/29/19 16:54 Attending Provider: Greyson Gonzalez Admit Provider: Janie Hood Primary Care Provider: Cassia Iniguez Other Providers: Greyson Gonzalez Other Interventions: Discharge Summary Assessment (RN) Last Done: 08/31/19 12:09 DC Date/Time DO NOT enter until pt leaves facility: 08/31/19 13:06 Supervising Physician Co-Signing Physician Notes I supervised Anila Mayfield MD on this patient's care. I examined the patient today independently of her. I discussed the plan of care with her with the plan being as written in her note except for any following changes/exceptions: None. Doing well today. Breathing is stable. No major cough. Will discharge home and follow up with PCP. Resident Activity Tracking Resident Involvement: Resident Care Provided Care Provided: Adult Hospital Medicine
--- NOTE | 2019-08-31 17:48 | Billing Data ---
Date of Service August 31, 2019 Coding Level of Care Code D/C Day Management >30 mins Time Spent (min) 35
--- NOTE | 2019-08-31 17:49 | Billing Data ---
Date of Service August 30, 2019 Coding Level of Care Code 76718 Subseq Hosp Care Lvl 3
== END 2019-08-31 13:06 | disposition home or self-care (01) | DRG 193 ==
LOC: ED 10:48 → SUATTDRO 16:54 → 2W 16:54